=== PATIENT | female | born 1965 | race Caucasian/White ===

== ENCOUNTER → 2023-02-01 13:44 | Outpatient (CLI) | payer OTHER, SELFPAY ==
--- NOTE | 2023-02-01 13:47 | DI.US.S_ITS ---
PROCEDURE: US PELVIC COMPLETE INDICATIONS: PERIMENOPAUSAL AND PAINFUL INTERCOURSE TECHNIQUE: Real-time scanning was performed of the pelvic organs, with image documentation. Additional endovaginal scanning was necessary due to incomplete visualization of the adnexal and endometrial structures by transabdominal scanning. COMPARISON: None. FINDINGS: Uterus: Uterus is anteverted and normal in size at 8.4 x 3.8 x 5.4 cm. The myometrium is homogeneous. The endometrium measures 3.1 mm combined thickness. Ovaries: Neither ovary visualized Other: No pathologic free abdominal or pelvic fluid. 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 Approved by: Dylan Pham M.D. on 02/01/2023 at 17:50
== END ==
PROVIDERS: Referring Provider Obstetrics & Gynecology; Visit Provider Obstetrics & Gynecology
DX: N94.10 Unspecified dyspareunia
CPT/HCPCS: 76830; 76856